=== PATIENT | female | born 2000 | race Two or more races ===

== ENCOUNTER 2024-04-06 00:10 | Inpatient (IN) | payer OTHER, SELFPAY ==
[2024-04-06] VITALS (64 sets, daily range): BP systolic 124–168; BP diastolic 74–99; PULSE 82–156; RESP 16–20; TEMP 36.6–37.9; O2SAT 75–100; BMI 40.1
[2024-04-06 01:38] LABS: Collection Type, Urine Voided; Squamous Epithelial Cell,Urine 0 /hpf (0-5)
[2024-04-06 01:43] LABS: Basophils % (Auto) 0 % (0-2.5); Eosinophils # (Auto) 0.1 Thou/mm3 (0.0-0.5); Eosinophils % (Auto) 1 % (0-10); Hematocrit 36.7 % (36.0-46.0); Hemoglobin 12.7 g/dL (12.0-16.0); Immature Granulocytes % (Auto) 1 % (0-0); Lymphocytes # (Auto) 2.5 Thou/mm3 (1.0-4.8); Lymphocytes % (Auto) 20 % (10-50); Mean Corpuscular HGB Conc 34.6 g/dl (31.0-37.0); Mean Corpuscular Hemoglobin 29.8 pg (25.0-35.0); Mean Corpuscular Volume 86 fL (80-100); Monocytes % (Auto) 8 % (0-12); Neutrophils # (Auto) 8.7 Thou/mm3 (1.8-7.7); Neutrophils % (Auto) 71 % (37-80); Nucleated Red Blood Cell % 0 /100 WBC (0); Platelet Count 260 Thou/mm3 (140-440); RDW Standard Deviation 43.3 fL (36.4-46.3); Red Blood Count 4.26 Miln/mm3 (4.00-5.20); White Blood Count 12.3 Thou/mm3 (3.6-11.0)
[2024-04-06 01:47] LABS: Bacteria,Urine Rare; Bilirubin,Urine Negative (Negative); Blood,Urine Negative (Negative); Clarity,Urine Clear (Clear/Hazy); Color,Urine Lt-Yellow (Lt Yel-Yel); Glucose, Urine Negative (Negative); Ketones,Urine Negative (Negative); Leukocyte Esterase,Urine Negative (Negative); Nitrite,Urine Negative (Negative); Protein,Urine Trace (Neg - Trace); RBC,Urine 8 /hpf (0-3); Specific Gravity,Urine 1.013 (1.001-1.035); Urobilinogen,Urine Negative mg/dL (0.0-1.0); WBC,Urine 2 /hpf (0-5)
[2024-04-06 02:06] LABS: Alanine Aminotransferase 19 U/L (10-49); Albumin, Serum 4.3 gm/dL (3.5-5.0); Albumin/Globulin Ratio 1.6 (1.2-2.2); Alkaline Phosphatase 223 U/L (46-116); Anion Gap 8 (7-16); Aspartate Amino Transferase 23 U/L (0-34); BUN/Creatinine Ratio 15 Ratio (12-20); Bilirubin,Total 0.3 mg/dL (0.3-1.2); Blood Urea Nitrogen 9 mg/dL (9-23); Calcium 9.7 mg/dL (8.3-10.6); Calcium (Corrected) 9.7 mg/dL (8.5-10.1); Carbon Dioxide 21.9 mMol/L (20.0-31.0); Chloride 106 mMol/L (98-107); Creatinine (Component) 0.6 mg/dL (0.6-1.3); Estimated Creatinine Clearance 198.5 mL/min (>60); Globulin 2.7 gm/dL (2.3-3.5); Glucose 88 mg/dL (74-106); Osmolality,Calculated 269 (275-295); Potassium 3.7 mMol/L (3.4-5.1); Sodium 136 mMol/L (136-145); Uric Acid 4.9 mg/dL (3.1-7.8); eGFR > 60 See Note
[2024-04-06 02:09] LABS: INR 0.9 (0.9-1.3); Prothrombin Time 9.8 Seconds (9.0-12.2)
[2024-04-06 02:10] LABS: Fibrinogen 646 mg/dL (175-375)
[2024-04-06 02:40] LABS: Syphilis Nonreactive (Nonreactive)
[2024-04-06] MEDS: LIDOCAINE HCL 1% 20 ML VIAL INFL (03:15)
[2024-04-06] MEDS: OXYTOCIN in NS 20 units 20 UNIT/1,000 ML BAG 125 UNIT IV (03:17)
[2024-04-06] MEDS: MISOPROSTOL 200 mCg TABLET 800 MCG PR (03:31)
--- NOTE | 2024-04-06 03:44 | EKG_ITS ---
[facility] Test Date: 2024-04-06 Pat Name: LUIS CARLOS SPENCE [facility] Registered Nursing Professor: JOSEPH : 2000 Requested By: Kev Mccall Order Number: [id number] Reading MD: Kev Mccall Measurements Intervals [place] Rate: 105 P: 54 [place]: 122 QRS: 69 QRSD: 73 T: 16 QT: 325 QTc: 430 Interpretive Statements SINUS TACHYCARDIA POSSIBLE LEFT ATRIAL ENLARGEMENT [-0.1mV P WAVE IN V1/V2] ABNORMAL RHYTHM ECG No previous ECG available for comparison /store/S0/[id number].pdf
--- NOTE | 2024-04-06 03:45 | XR_ITS ---
Examination: AP chest single view Technique one AP portable upright chest single view Exam date and time: April 06, 2024 at 0355 hrs. Comparison March 27, 2009 Indications: Sepsis protocol Findings: Normal heart size No lobar pneumonia The osseous structures are intact Impression: No pneumonia identified
[2024-04-06] MEDS: BENZO/LANO/ALOE (Dermoplast) 60 GM CAN 1 SPRAY TOP (03:49)
--- NOTE | 2024-04-06 03:49 | ESDS_ITS ---
DS: Providers Provider Date of admission: 04/06/24 01:00 Primary care physician: Physician No Primary/Family Admitting Provider: Kev Dodge MD Attending Provider on Admission: Kev Dodge MD Consults: 04/06/24 03:40 Referral Routine Comment: Attending Provider on DC: eKv Dodge MD Discharging Provider: Kev Dodge MD DS: Diagnosis Problem List Completed Was Problem List Reviewed/Reconciled?: Yes Summary/Hosp Course Time Spent with Patient Time attestation: Total time spent providing and/or coordinating discharge services: Exam Vital Signs Temp Pulse BP Pulse Ox 98.7 F 92 124/80 97 04/06/24 01:54 04/06/24 03:49 04/06/24 03:49 04/06/24 03:05 Discharge Plan Plan Patient Disposition: HOME (Self Care) Patient condition on transfer: Stable Prescriptions/Referrals Prescriptions/Med Rec: New ibuprofen 600 mg tablet 600 mg PO Q6H PRN (Reason: pain) Qty: 30 0RF No Action PNV cmb#95-ferrous fumarate-FA [] 28 mg iron- 800 mcg tablet 1 tab PO QDAY Patient Comments: TAKE 1 TABLET ORALLY DAILY Referrals: No Primary/Family,Physician [Primary Care Provider] - Patient/Caregiver Discharge Instructions Discharge Activity: activity as tolerated Other Discharge Activity Instructions:: Follow up office 6 weeks Print Language: Frisian Stand Alone Forms: [employer] Award Info., Patient Portal Info Letter Planned Discharge Date 04/08/24
--- NOTE | 2024-04-06 03:51 | OBDSUM_ITS ---
Vacuum Assisted Delivery General Patient Counseled by physician:: Yes Informed consent to patient:: Yes Estimated weight:: 8 lb Cervical dilation:: fully dilated station:: +2 position:: OA Molding:: No Caput:: Yes Vacuum Application Vacuum type:: Mityvac Vacuum application:: flexing median Total vacuum time (min):: 2 Maximum pressure (cm Hg):: 50 Cup Placement Flexion point identified:: Yes Cup approp. for head position:: Yes Maternal tissue excluded:: Yes Vacuum Procedure Number of pulls (contractions):: 3 Number of pop-offs:: 0 Recommended range maintained:: Yes Vacuum reduced between pulls:: Yes Advancement made each pull:: Yes Vacuum successful:: Yes Immediate Evaluation Immediate assessment:: no apparent injury Hand-off care to:: nursery nurse Data ([place]) Data : 1 Para: 0 Term: 0 : 0 : 0 Delivery Data ([place]) Labor Data ROM Date: 04/06/24 ROM Time: 02:50 Rupture Type: AROM Amniotic Fluid: Clear Delivery Data EDC: 04/09/24 EDC calculated by:: LMP/early US confirmation Labor Onset Stage 1 Date: 04/06/24 Labor Onset Stage 1 Time: 00:40 Labor Onset Stage 2 Date: 04/06/24 Labor Onset Stage 2 Time: 02:50 Delivery Date: 04/06/24 Delivery Time: 03:13 Gestational age (weeks): 39 Gestational age (days): 4 Placenta Delivery Date: 04/06/24 Placenta Delivery Time: 03:17 Delivered by: Kev Dodge Delivery nurse: Saida Johnson Other staff at delivery: 2nd Nurse Delivery Method Delivery: Vaginal Delivery Type: Spontaneous Presentation: Vertex Position: OA Anesthesia Type Primary Anesthesia: Local Placenta Placenta Delivery: Spontaneous Placenta Cultures Obtained: No Placenta Sent for Examination: No Cord Sample: Cord Blood Obtained, Cord Gases Arterial and Cord Gases Venous Lacerations #1: Perineal: 2nd degree Perineal repair Sutures used for repair: 3.0 Chromic EBL Estimated blood loss (ml): 250 Umbilical Cord Umbilical Vessels: 3 Additional Procedures Vaccum assisted vaginal delivery. Complications Complications: Uterine atony Data ([place]) [place] Data Gender: Male Infant Weight Grams: 3655 1 Minute Total: 9 5 Minute Total: 10
--- NOTE | 2024-04-06 03:56 | PD.LDHP ---
Documentation for date of: 04/06/24 OB Labor/Induct. HPI History of Present Illness History of present illness: dictated in Nuance History of Present Adequate Care: Yes Labs Labs: Negative: Hepatitis B, HIV, Chlamydia and Gonorrhea and Unknown: Group Beta Strep Meds Home Medications and Allergies Home Medications ?Medication ?Instructions ?Recorded ?Confirmed ?Type vit no.95-ferrous 1 tab PO QDAY 04/06/24 04/06/24 History fumarate 28 mg-folic acid 800 mcg tablet () Allergies Allergy/AdvReac Type Severity Reaction Status Date / Time Penicillins Allergy Unknown Verified 10/21/22 10:18 OB Exam Physical Exam Vital signs: Temp Pulse BP Pulse Ox 98.7 F 105 H 131/88 H 97 04/06/24 01:54 04/06/24 03:53 04/06/24 03:53 04/06/24 03:05 OB Results Labs 04/06/24 01:05 04/06/24 01:05 Labs: Short CBC 04/06/24 Range/Units 01:05 WBC 12.3 H (3.6-11.0) Thou/mm3 Hgb 12.7 (12.0-16.0) g/dL Hct 36.7 (36.0-46.0) % Plt Count 260 (140-440) Thou/mm3 BMP 04/06/24 01:05 Sodium 136 Potassium 3.7 Chloride 106 Carbon Dioxide 21.9 BUN 9 Creatinine 0.6 Glucose 88 Calcium 9.7 Liver Function 04/06/24 Range/Units 01:05 Total Bilirubin 0.3 (0.3-1.2) mg/dL AST 23 (0-34) U/L ALT 19 (10-49) U/L Alkaline Phosphatase 223 H (46-116) U/L Albumin 4.3 (3.5-5.0) gm/dL Urine 04/06/24 Range/Units 01:05 Urine Color Lt-Yellow (Lt Yel-Yel) Urine Clarity Clear (Clear/Hazy) Urine pH 7.0 (5.0-7.0) Ur Specific [place] 1.013 (1.001-1.035) Urine Protein Trace (Neg - Trace) Urine Glucose (UA) Negative (Negative)
--- NOTE | 2024-04-06 04:31 | ESHP_ITS ---
RE: LUIS CARLOS SPENCE : 2000 DATE OF ADMISSION: 04/06/2024 HISTORY OF PRESENT ILLNESS: This is a 23-year-old 1, para 0, with due date 04/09/2024 with intrauterine at 39 weeks and 4 days, who presents to labor and delivery complaining of contractions and is noted to be in early labor, where she is progressed to 9 cm. She denies any leaking or bleeding. She reports normal movement. She was noted to have mild systolic hypertension since her first visits and her home blood pressures have been monitored throughout her . Her home pressures have been normal until the end of the third trimester where the patient started to have elevated blood pressures in the office recent 24-hour urine collection on 04/01/2024 showed 175 mg of protein over 24 hours. Her preeclampsia labs on admission shows no protein in her urine with normal platelet count, normal liver function tests and normal creatinine level. Her most recent ultrasound on 03/30/2024 shows growth at 7 pounds 10 ounces at the sixtieth percentile. ALLERGIES: PENICILLIN. HOME MEDICATIONS: 1. multivitamin 1 p.o. daily. 2. Aspirin 81 mg 1 p.o. daily. PAST MEDICAL HISTORY: Borderline systolic hypertension, gallstones. FAMILY HISTORY: Diabetes, hypertension, and autism. PAST SURGICAL HISTORY: Cholecystectomy. REVIEW OF SYSTEMS: She denies any chest pain, palpitations, cough, fever, shortness of breath, or lower extremity pain. PHYSICAL EXAMINATION: VITAL SIGNS: Blood pressure 154/77, heart rate 88, respirations 18, temperature is 98.2. HEENT: Oropharynx and sclerae are clear. LUNGS: Clear to auscultation bilaterally. CARDIOVASCULAR: Regular rate and rhythm. ABDOMEN: Gravid, term size consistent with estimated weight 8 pounds. PELVIC: See RN notes. EXTREMITIES: Nontender. SKIN: No gross rashes or lesions. NEUROLOGIC: No focal deficit. ASSESSMENT: 1. Intrauterine at 39 weeks and 4 days. 2. Chronic hypertension. 3. Active labor. PLAN: Anticipate spontaneous vaginal delivery. Informed consent was obtained. The patient was made aware of the risks, complications, alternatives, benefits of operative vaginal delivery, delivery and agrees with these modes of delivery if indicated. DT: 02:43:40 TT: 04:29:00 Ref: [id number] - TID: [id number]
[2024-04-06] MEDS: CLINDAMYCIN IV (04:36)
[2024-04-06] MEDS: NS IV (04:36)
[2024-04-06] MEDS: IBUPROFEN TAB 400 MG TABLET 800 MG PO ×2 (04:58→16:40)
[2024-04-06 05:09] LABS: Lactate (Lactic Acid) 2.8 mMol/L (0.4-2.0)
[2024-04-06] MEDS: ACETAMINOPHEN 325 MG TABLET 650 MG PO ×2 (05:26→12:44)
[2024-04-06 05:33] LABS: Basophils % (Auto) 0 % (0-2.5); Eosinophils % (Auto) 0 % (0-10); Hemoglobin 11.9 g/dL (12.0-16.0); Immature Granulocytes % (Auto) 1 % (0-0); Immature Granulocytes Auto 0.13 Thou/mm3 (0.00-0.00); Lymphocytes # (Auto) 0.7 Thou/mm3 (1.0-4.8); Lymphocytes % (Auto) 4 % (10-50); Mean Corpuscular Hemoglobin 30.3 pg (25.0-35.0); Mean Corpuscular Volume 87 fL (80-100); Monocytes # (Auto) 0.7 Thou/mm3 (0.0-0.8); Monocytes % (Auto) 4 % (0-12); Neutrophils # (Auto) 17.3 Thou/mm3 (1.8-7.7); Neutrophils % (Auto) 91 % (37-80); Nucleated Red Blood Cell % 0 /100 WBC (0); Platelet Count 238 Thou/mm3 (140-440); Red Blood Count 3.93 Miln/mm3 (4.00-5.20)
[2024-04-06 06:09] LABS: Fibrinogen 563 mg/dL (175-375); INR 0.9 (0.9-1.3); Partial Thromboplastin Time 22.2 Seconds (22.0-36.0); Prothrombin Time 10.1 Seconds (9.0-12.2)
[2024-04-06 06:26] LABS: Alanine Aminotransferase 18 U/L (10-49); Albumin, Serum 3.8 gm/dL (3.5-5.0); Albumin/Globulin Ratio 1.5 (1.2-2.2); Alkaline Phosphatase 199 U/L (46-116); Anion Gap 10 (7-16); Aspartate Amino Transferase 29 U/L (0-34); BUN/Creatinine Ratio 13 Ratio (12-20); Bilirubin,Total 0.3 mg/dL (0.3-1.2); Blood Urea Nitrogen 8 mg/dL (9-23); Calcium 9.3 mg/dL (8.3-10.6); Calcium (Corrected) 9.5 mg/dL (8.5-10.1); Chloride 107 mMol/L (98-107); Creatinine (Component) 0.6 mg/dL (0.6-1.3); Estimated Creatinine Clearance 198.5 mL/min (>60); Globulin 2.5 gm/dL (2.3-3.5); Glucose 117 mg/dL (74-106); Osmolality,Calculated 269 (275-295); Potassium 3.7 mMol/L (3.4-5.1); Procalcitonin 0.04 ng/ml (0.0-0.49); Sodium 135 mMol/L (136-145); Total Protein 6.3 gm/dL (5.7-8.2); eGFR > 60 See Note
[2024-04-06 08:04] LABS: Reflex Lactate? Y
[2024-04-06 08:35] LABS: Lactic Acid, 3 HR 1.8 mMol/L (0.4-2.0)
[2024-04-06] MEDS: RINGERS LACTATED 1000 ML 1,000 ML 125 ML IV (08:46)
--- NOTE | 2024-04-06 09:13 | PC.NURSE ---
04/06/2024 @ 2023 LABS REVIEWED AND MORNING VITAL SIGNS REVIEWED WITH DR. MORRIS. PROVIDER ALSO NOTIFIED FUNDUS, FIRM MIDLINE WITH SCANT BLEEDING. NO NEW ORDERS.
[2024-04-06] MEDS: TRANEXAMIC ACID 1,000 MG IVPB 1,000 MG/100 ML BAG 200 MG IV (10:06)
[2024-04-06 13:12] LABS: Basophils % (Auto) 0 % (0-2.5); Eosinophils % (Auto) 0 % (0-10); Hematocrit 32.9 % (36.0-46.0); Hemoglobin 11.2 g/dL (12.0-16.0); Immature Granulocytes % (Auto) 1 % (0-0); Immature Granulocytes Auto 0.18 Thou/mm3 (0.00-0.00); Lymphocytes # (Auto) 1.6 Thou/mm3 (1.0-4.8); Lymphocytes % (Auto) 8 % (10-50); Mean Corpuscular Hemoglobin 29.6 pg (25.0-35.0); Mean Corpuscular Volume 87 fL (80-100); Monocytes % (Auto) 5 % (0-12); Neutrophils # (Auto) 17.6 Thou/mm3 (1.8-7.7); Neutrophils % (Auto) 86 % (37-80); Nucleated Red Blood Cell % 0 /100 WBC (0); Platelet Count 251 Thou/mm3 (140-440); RDW Standard Deviation 43.9 fL (36.4-46.3); Red Blood Count 3.79 Miln/mm3 (4.00-5.20); White Blood Count 20.4 Thou/mm3 (3.6-11.0)
[2024-04-06] MEDS: CLINDAMYCIN 900MG IVPB 50 ML 100 MG IV ×2 (14:04→22:34)
[2024-04-06] MEDS: HYDROcodone/APAP 5/325 TABLET 1 TAB PO (20:16)
[2024-04-07 04:06] VITALS: BP 120/77; PULSE 96; RESP 16; TEMP 37; O2SAT 98
[2024-04-07] MEDS: IBUPROFEN TAB 400 MG TABLET 800 MG PO (04:20)
[2024-04-07] MEDS: CLINDAMYCIN 900MG IVPB 50 ML 100 MG IV ×3 (05:39→22:57)
[2024-04-07 05:49] LABS: Basophils # (Auto) 0.1 Thou/mm3 (0.0-0.2); Basophils % (Auto) 0 % (0-2.5); Eosinophils % (Auto) 0 % (0-10); Hematocrit 27.4 % (36.0-46.0); Hemoglobin 9.3 g/dL (12.0-16.0); Immature Granulocytes % (Auto) 1 % (0-0); Immature Granulocytes Auto 0.11 Thou/mm3 (0.00-0.00); Lymphocytes # (Auto) 1.9 Thou/mm3 (1.0-4.8); Lymphocytes % (Auto) 12 % (10-50); Mean Corpuscular HGB Conc 33.9 g/dl (31.0-37.0); Mean Corpuscular Hemoglobin 29.8 pg (25.0-35.0); Mean Corpuscular Volume 88 fL (80-100); Monocytes # (Auto) 1.1 Thou/mm3 (0.0-0.8); Monocytes % (Auto) 7 % (0-12); Neutrophils # (Auto) 12.8 Thou/mm3 (1.8-7.7); Neutrophils % (Auto) 81 % (37-80); Nucleated Red Blood Cell % 0 /100 WBC (0); Platelet Count 191 Thou/mm3 (140-440); RDW Standard Deviation 45.6 fL (36.4-46.3); Red Blood Count 3.12 Miln/mm3 (4.00-5.20); White Blood Count 15.9 Thou/mm3 (3.6-11.0)
[2024-04-07 08:30] VITALS: BP 125/58; PULSE 114; RESP 17; TEMP 36.9; O2SAT 98
--- NOTE | 2024-04-07 09:22 | ESPR_ITS ---
RE: LUIS CARLOS SPENCE : 2000 DATE OF SERVICE: 04/07/2024 S: day #1, the patient denies any problem or complaint. She is voiding. She is ambulating. She is tolerating diet. She is passing flatus. She denies any excessive vaginal bleeding. She denies any dizziness or lightheadedness. She denies any chest pain, palpitation, shortness of breath, or lower extremity pain. O: Vital Signs: Blood pressure is 120/77, heart rate 96, respirations 16, temperature is 98.6, pulse oximetry is 98% on room air, T-max 100.3. Lungs: Clear to auscultation bilaterally. Heart: Regular rate and rhythm. Abdomen: Fundus is firm, nontender. Extremities: Nontender. LABORATORY DATA: Hemoglobin predelivery is 11.9, post-delivery is 9.3. White blood cell count is 15.9, which is down from 20.4. Coag profile within normal limits. Liver function tests, lactic acid, procalcitonin within normal limits. Chest x-ray negative. EKG, sinus tachycardia. Urine culture pending. Blood cultures, no growth after 24 hours. ASSESSMENT AND PLAN: day #1, status post vacuum-assisted vaginal delivery. Anemia, but hemodynamically stable. Maternal tachycardia with fever suggestive of infection, presumptive endometritis. Septic workup negative thus far. Continue empiric antibiotics in the form of tobramycin and clindamycin for presumptive endometritis. Possible discharge home tomorrow. I discussed with the patient the recommended treatment plan, reviewed all the lab results, and discussed the findings at delivery. All questions were answered. DT: 07:36:00 TT: 09:21:00 Ref: [id number] - TID: [id number]
[2024-04-07 15:35] VITALS: BP 116/72; PULSE 86; RESP 15; TEMP 36.9; O2SAT 98
[2024-04-07] MEDS: ACETAMINOPHEN 325 MG TABLET 650 MG PO (19:58)
[2024-04-07 20:00] VITALS: BP 140/80; PULSE 95; RESP 18; TEMP 37.3; O2SAT 99
[2024-04-08 04:55] VITALS: BP 118/69; PULSE 80; RESP 16; TEMP 36.7; O2SAT 98
[2024-04-08] MEDS: CLINDAMYCIN 900MG IVPB 50 ML 100 MG IV (05:12)
[2024-04-08] MEDS: ACETAMINOPHEN 325 MG TABLET 650 MG PO (05:12)
[2024-04-08 08:00] VITALS: BP 111/71; PULSE 84; RESP 20; TEMP 37.1; O2SAT 99
--- NOTE | 2024-04-08 09:42 | ESPR_ITS ---
RE: LUIS CARLOS SPENCE : 2000 DATE OF SERVICE: 04/08/2024 S: On day #2, the patient denies any problem or complaint. She is voiding, ambulating, tolerating diet, passing flatus. She denies any excessive vaginal bleeding. She denies any dizziness or lightheadedness. She denies any chest pain, palpitation, shortness of breath, or lower extremity pain. She denies any depression or anxiety. VITAL SIGNS: Blood pressure 118/69, heart rate 80, respirations 16, temperature is 98.1, pulse oximetry is 98% on room air. LUNGS: Clear to auscultation bilaterally. HEART: Regular rate and rhythm. ABDOMEN: Fundus is firm. EXTREMITIES: Nontender. A: On day #2, status post vacuum-assisted vaginal delivery, endometritis resolved, anemia, but hemodynamically stable. P: Discharge home. Followup in the office in 6 weeks. Discharge instructions given. DT: 07:19:46 TT: 09:40:00 Ref: [id number] - TID: [id number] MTDD
== END 2024-04-08 09:50 | disposition home or self-care (01) | DRG 806 ==
LOC: S4SX 03:38 → S4NX 05:59
PROVIDERS: Admitting Provider Specialist; Visit Provider Specialist
DX: O10.92 Unspecified pre-existing hypertension complicating childbirth (principal); O86.12 Endometritis following delivery; Z37.0 Single live birth; O70.1 Second degree perineal laceration during delivery; O62.2 Other uterine inertia; O90.81 Anemia of the puerperium; Z3A.39 39 weeks gestation of pregnancy; Z88.0 Allergy status to penicillin
CPT/HCPCS: 36415; 59025; 59409; 71045; 80053; 81001; 83605; 84145; 84550; 85025; 85384; 85610; 85730; 86780; 86850; 86900; 86901; 86923; 87040; 87086; 93005; J2590; J3260; J3490; J7050; J7120; S0077; S0191; A9270; J0736

== ENCOUNTER → 2024-10-26 | Outpatient (CLI) | payer OTHER, SELFPAY ==
--- NOTE | 2024-10-26 | XR_ITS ---
Examination: Lumbar spine, 5 views Technique: Lumbar spine AP, lateral, coned lateral lower lumbar spine, bilateral obliques 5 views Exam date and time: October 26, 2024 1528 hours INDICATIONS: Low back pain months. FINDINGS: Lumbar levoscoliosis 10 degrees Mild diffuse facet arthropathy No lumbar fracture No spondylolisthesis Moderate degenerative disc disease L5-S1 IMPRESSION: Moderate degenerative disc disease L5-S1
== END | disposition home or self-care (01) ==
PROVIDERS: PCP Specialist; Referring Provider Chiropractor; Visit Provider Chiropractor
DX: M51.379 Other intervertebral disc degeneration, lumbosacral region without mention of lumbar back pain or lower extremity pain (principal); M41.9 Scoliosis, unspecified; M47.816 Spondylosis without myelopathy or radiculopathy, lumbar region
CPT/HCPCS: 72110